=== PATIENT | male | born 1945 | race Caucasian/White ===

== ENCOUNTER 2018-04-18 13:04 | Emergency (ER) | payer MEDICARE ==
[2018-04-18] MEDS ORDERED: ASPIRIN 81 MG TABLET, CHEWABLE PO ONE (14:06)
[2018-04-18 14:43] LABS: ABSOLUTE BASOPHILS # (AUTO) 0.1 10^3/uL (0.0-0.2); ABSOLUTE EOSINOPHILS # (AUTO) 0.3 10^3/uL (0.0-0.6); ABSOLUTE LYMPHOCYTES (AUTO) 1.1 10^3/uL (0.5-4.7); ABSOLUTE MONOCYTES (AUTO) 0.4 10^3/uL (0.1-1.4); ABSOLUTE NEUT (AUTO) 5.8 10^3/uL (1.7-8.2); BASOPHILS % (AUTO) 0.8 % (0-2); EOSINOPHILS % (AUTO) 3.8 % (0-6); HEMATOCRIT 45.9 % (37.9-51.0); HEMOGLOBIN 15.1 g/dL (13.5-17.0); LYMPHOCYTES % (AUTO) 14.1 % (13-45); MEAN CORPUSCULAR HEMOGLOBIN 29.1 pg (27.0-33.4); MEAN CORPUSCULAR VOLUME 88 fl (80-97); MONOCYTES % (AUTO) 5.2 % (3-13); PLATELET COUNT 240 10^3/uL (150-450); RED BLOOD COUNT 5.19 10^6/uL (4.35-5.55); RED CELL DISTRIBUTION WIDTH 14.2 % (11.5-14.0); SEGMENTED NEUTROPHILS % (AUTO) 76.1 % (42-78); TOTAL CELLS COUNTED % (AUTO) 100 %; WHITE BLOOD COUNT 7.6 10^3/uL (4.0-10.5)
--- NOTE | 2018-04-18 14:59 | RADIOLOGY REPORT (SQ) ---
EXAM DESCRIPTION: CHEST SINGLE VIEW COMPLETED DATE/TIME: 04/18/2018 2:30 pm REASON FOR STUDY: LOC COMPARISON: 01/18/2008 EXAM PARAMETERS: NUMBER OF VIEWS: One view. TECHNIQUE: Single frontal radiographic view of the chest acquired. RADIATION DOSE: NA LIMITATIONS: None. FINDINGS: LUNGS AND PLEURA: Bibasilar interstitial lung marking prominence. Suggestion of some inte rlobular septal thickening. No definite pleural effusion. MEDIASTINUM AND HILAR STRUCTURES: No masses. Contour normal. HEART AND VASCULAR STRUCTURES: Heart normal in size. Normal vasculature. BONES: No acute findings. HARDWARE: None in the chest. OTHER: No other significant finding. IMPRESSION: Bibasilar increased interstitial lung markings. This may represent early pulmonary sania a/ congestive heart failure. A superimposed infectious process cannot be excluded. TECHNICAL DOCUMENTATION: JOB ID: [id number] [employer]- All Rights Reserved Reading location - IP/workstation name: [email or web address]
[2018-04-18 15:48] LABS: ALANINE AMINOTRANSFERASE 16 U/L (21-72); ALBUMIN 4.2 g/dL (3.5-5.0); ALKALINE PHOSPHATASE 93 U/L (38-126); ANION GAP 13 (5-19); ASPARTATE AMINO TRANSFERASE 19 U/L (17-59); BILIRUBIN,DIRECT 0.3 mg/dL (0.0-0.4); BILIRUBIN,TOTAL 0.5 mg/dL (0.2-1.3); BLOOD UREA NITROGEN 30 mg/dL (7-20); CALCIUM 9.3 mg/dL (8.4-10.2); CARBON DIOXIDE 23 mmol/L (22-30); CHLORIDE 105 mmol/L (98-107); CREATINE KINASE 91 U/L (55-170); GLUCOSE 101 mg/dL (75-110); POTASSIUM 4.9 mmol/L (3.6-5.0); SODIUM 140.7 mmol/L (137-145); TOTAL PROTEIN 7.9 g/dL (6.3-8.2)
[2018-04-18 16:00] LABS: CREATINE KINASE MB 2.09 ng/mL (<4.55)
[2018-04-18 16:03] LABS: TROPONIN I < 0.012 ng/mL
--- NOTE | 2018-04-18 18:12 | ER Document Report ---
ED General - General Chief Complaint: Syncope Stated Complaint: SYNCOPE Time Seen by Provider: 04/18/18 14:05 Mode of Arrival: Medic Notes: 72-year-old male presents emergency department via EMS for near syncope at [place]. Patient states that he never actually passed out just states that he came very close to passing out, got very woozy and dizzy and was caught as he was falling to the ground. Patient was singing as a member of the choir in [place], had not had anything to eat or drink this morning. Family states that he was very icy and clammy when he reached the floor. Patient denies any chest pain, any nausea or headache at the time or presently. States he has felt like this in [place] before when he has not eaten has been singing but has never come as close to passing out. TRAVEL OUTSIDE OF THE [place] IN LAST 30 DAYS: No - Related Data Allergies/Adverse Reactions: No Known Allergies Allergy (Unverified 04/18/18 13:19) Past Medical History - General Information source: Patient, Relative - Social History Smoking Status: Never Smoker Chew tobacco use (# tins/day): No Frequency of alcohol use: None Drug Abuse: None Family History: Other - Father of pancreatic cancer in his 50s, grandfather lived to Patient has suicidal ideation: No Patient has homicidal ideation: No - Past Medical History Cardiac Medical History: Reports: Hx Hypercholesterolemia, Hx Hypertension Renal/ Medical History: Denies: Hx Peritoneal Dialysis GI Medical History: Reports: Hx Hiatal Hernia Past Surgical History: Reports: Hx Urinary Tract Surgery - Prostate Review of Systems - Review of Systems Constitutional: See HPI - Near-syncope EENT: No symptoms reported Cardiovascular: See HPI, Dizziness - Or syncope Respiratory: No symptoms reported Neurological/Psychological: See HPI - Near-syncope -: Yes All other systems reviewed and negative Physical Exam - Vital signs Vitals: Temp 97.9 F 04/18/18 13:19 Interpretation: Hypertensive - Notes Notes: GENERAL: Alert, interacts well. No acute distress. HEAD: Normocephalic, atraumatic EYES: Pupils equal, round and reactive to light, extraocular movements intact. ENT: Oral mucosa moist, tongue midline. NECK: Full range of motion, supple, trachea midline. LUNGS: Clear to auscultation bilaterally, no wheezes, rales or rhonchi, no respiratory distress. HEART: Regular rate and rhythm, no murmurs, gallops, rubs. ABDOMEN: Soft, nontender, nondistended, bowel sounds present in all 4 quadrants. EXTREMITIES: Moves all 4 extremities spontaneously, no edema, radial and dorsalis pedis pulses 2/4 bilaterally. No cyanosis. NEUROLOGICAL: Alert and oriented x3, normal speech, cranial nerves II through XII grossly intact, biceps and patellar DTRs 2+ bilaterally. PSYCH: Normal mood, normal affect. SKIN: Warm, Dry, normal turgor, no rashes or lesions noted. Course - Re-evaluation Re-evalutation: 04/18/18 18:10 CBC unremarkable, CMP shows renal failure with a BUN of 30 and creatinine 1.71, patient is aware that he has some chronic baseline renal failure, I do not hear any crackles in the lungs, chest x-ray is read as possible mild pulmonary vascular congestion, proBNP was ordered and is only 492, cardiac enzymes negative. I do not feel this patient is in acute renal failure or heart failure 04/18/18 18:12 At present I do not see any cause for syncope but I do not see any high risk factors beyond his age. Patient was not a true syncopal episode he was only near syncope, patient will be discharged home and asked to follow-up with his water quality assistant as outpatient. Patient has already had a heart monitor several weeks ago. - Vital Signs Vital signs: Temp Pulse Resp BP Pulse Ox 97.9 F 17 165/75 H 94 04/18/18 13:19 04/18/18 13:22 04/18/18 13:21 04/18/18 13:21 - Laboratory Result Diagrams: 04/18/18 12:24 04/18/18 14:50 Laboratory results interpreted by me: 04/18/18 04/18/18 12:24 14:50 RDW 14.2 H BUN 30 H Creatinine 1.71 H Est GFR ( Amer) 48 L Est GFR (Non-Af Amer) 40 L ALT 16 L - EKG Interpretation by Me Additional EKG results interpreted by me: 04/18/18 18:13 EKG shows sinus rhythm at a rate of 81, left axis deviation, interventricular conduction delay, no ST segment elevations or depressions, per my interpretation. Discharge - Discharge Clinical Impression: Near syncope Condition: Stable Disposition: HOME, SELF-CARE Instructions: Syncopal Episode ([facility])
[2018-04-18 18:54] VITALS: BP 186/105
--- NOTE | 2018-04-18 23:00 | EKG REPORT ---
SEVERITY:- ABNORMAL ECG - SINUS RHYTHM LEFT AXIS DEVIATION ANTERIOR INFARCT, OLD : Confirmed by: Dayanna Casiano 18-Apr-2018 22:59:45
== END 2018-04-18 19:00 | disposition home or self-care (01) ==
LOC: ER 13:04
DX: I45.9 Conduction disorder, unspecified (principal); I12.9 Hypertensive chronic kidney disease with stage 1 through stage 4 chronic kidney disease, or unspecified chronic kidney disease; N18.9 Chronic kidney disease, unspecified
CPT/HCPCS: 93005; 99284; 36415; 82553; 82550; 85025; 80053; 84484; 83880; 71045; 93010; A9270